=== PATIENT | male | born 1965 | race African-American/Black ===

== ENCOUNTER 2018-08-11 19:56 | Emergency (ER) | payer BC ==
[~2018-08-11] VITALS: Ht 188 cm; Wt 100.0 kg
--- NOTE | 2018-08-11 20:18 | PHYS DOC ---
Adult General Chief Complaint Chief Complaint leg pain [facility] HPI 53 years old male presented emergency department with right calf pain started this afternoon at work he denies any recent travel denies any injury no history of blood clots in the past no family history of blood clots Review of Systems Review of Systems Constitutional: Denies fever or chills [] Eyes: Denies change in visual acuity, redness, or eye pain [] HENT: Denies nasal congestion or sore throat [] Respiratory: Denies cough or shortness of breath [] Cardiovascular: No additional information not addressed in HPI [] GI: Denies abdominal pain, nausea, vomiting, bloody stools or diarrhea [] : Denies dysuria or hematuria [] Musculoskeletal: Denies back pain or joint pain [] Integument: Denies rash or skin lesions [] Neurologic: Denies headache, focal weakness or sensory changes [] Endocrine: Denies polyuria or polydipsia [] All other systems were reviewed and found to be within normal limits, except as documented in this note. Allergies Allergies Allergies Coded Allergies Type Severity Reaction Last Updated Verified No Known Drug Allergies 08/11/18 No Physical Exam Physical Exam Constitutional: Well developed, well nourished, no acute distress, non-toxic appearance. [] HENT: Normocephalic, atraumatic, bilateral external ears normal, oropharynx moist, no oral exudates, nose normal. [] Eyes: PERRLA, EOMI, conjunctiva normal, no discharge. [] Neck: Normal range of motion, no tenderness, supple, no stridor. [] Cardiovascular:Heart rate regular rhythm, no murmur [] Lungs & Thorax: Bilateral breath sounds clear to auscultation [] Abdomen: Bowel sounds normal, soft, no tenderness, no masses, no pulsatile masses. [] Skin: Warm, dry, no erythema, no rash. [] Back: No tenderness, no CVA tenderness. [] Extremities: No tenderness, no cyanosis, no clubbing, ROM intact, no edema. [] Neurologic: Alert and oriented X 3, normal motor function, normal sensory function, no focal deficits noted. [] Psychologic: Affect normal, judgement normal, mood normal. [] Current Patient Data Vital Signs Vital Signs Date Time Temp Pulse Resp B/P (MAP) Pulse Ox O2 Delivery O2 Flow Rate FiO2 08/11/18 19:56 98.8 54 18 97 Room Air Lab Results Laboratory Tests Test 08/11/18 20:40 White Blood Count 7.5 x10^3/uL (4.0-11.0) Red Blood Count 5.09 x10^6/uL (4.30-5.70) Hemoglobin 15.8 g/dL (13.0-17.5) Hematocrit 46.2 % (39.0-53.0) Mean Corpuscular Volume 91 fL (79-100) Mean Corpuscular Hemoglobin 31 pg (25-35) Mean Corpuscular Hemoglobin Concent 34 g/dL (31-37) Red Cell Distribution Width 13.2 % (11.5-14.5) Platelet Count 185 x10^3/uL (140-400) Neutrophils (%) (Auto) 71 % (31-73) Lymphocytes (%) (Auto) 21 % (24-48) L Monocytes (%) (Auto) 8 % (0-9) Eosinophils (%) (Auto) 0 % (0-3) Basophils (%) (Auto) 0 % (0-3) Neutrophils # (Auto) 5.3 x10^3uL (1.8-7.7) Lymphocytes # (Auto) 1.6 x10^3/uL (1.0-4.8) Monocytes # (Auto) 0.6 x10^3/uL (0.0-1.1) Eosinophils # (Auto) 0.0 x10^3/uL (0.0-0.7) Basophils # (Auto) 0.0 x10^3/uL (0.0-0.2) Sodium Level 140 mmol/L (136-145) Potassium Level 3.7 mmol/L (3.5-5.1) Chloride Level 102 mmol/L (98-107) Carbon Dioxide Level 29 mmol/L (21-32) Anion Gap 9 (6-14) Blood Urea Nitrogen 15 mg/dL (8-26) Creatinine 1.3 mg/dL (0.7-1.3) Estimated GFR (Cockcroft-Gault) 70.4 Glucose Level 107 mg/dL (70-99) H Calcium Level 8.9 mg/dL (8.5-10.1) EKG EKG [] Radiology/Procedures Radiology/Procedures []Ultrasound of the right leg did not show any evidence of DVT however showed a cyst about 4 cm Course & Med Decision Making Course & Med Decision Making Pertinent Labs and Imaging studies reviewed. (See chart for details) [] Final Impression Final Impression Patient to follow-up with his primary care provider[] Problems: (1) Leg pain, right Dragon Disclaimer Dragon Disclaimer This electronic medical record was generated, in whole or in part, using a voice recognition dictation system. LA ROSA MD Aug 11, 2018 20:18
[2018-08-11 20:59] LABS: BASO % 0 % (0-3); EOS % 0 % (0-3); HEMATOCRIT 46.2 % (39.0-53.0); HEMOGLOBIN 15.8 g/dL (13.0-17.5); LYMPH # 1.6 x10^3/uL (1.0-4.8); LYMPH % 21 % (24-48); MEAN CORPUSCULAR HEMOGLOBIN 31 pg (25-35); MEAN CORPUSCULAR HGB CONC 34 g/dL (31-37); MEAN CORPUSCULAR VOLUME 91 fL (79-100); MONO # 0.6 x10^3/uL (0.0-1.1); MONO % 8 % (0-9); NEUT # 5.3 x10^3uL (1.8-7.7); NEUT % 71 % (31-73); PLATELET COUNT 185 x10^3/uL (140-400); RED BLOOD COUNT 5.09 x10^6/uL (4.30-5.70); RED CELL DISTRIBUTION WIDTH 13.2 % (11.5-14.5); WHITE BLOOD COUNT 7.5 x10^3/uL (4.0-11.0)
[2018-08-11 21:14] LABS: CALCIUM 8.9 mg/dL (8.5-10.1); CREATININE 1.3 mg/dL (0.7-1.3); GFR 70.4; POTASSIUM 3.7 mmol/L (3.5-5.1)
[2018-08-11 22:47] VITALS: BP 139/90
--- NOTE | 2018-08-11 23:42 | RAD ---
Examination: VENOUS LOWER EXTREMITY RIGHT History: RT MID CALF PAIN, NO KNOWN INJURY, PT JUST FELT SHARP PAIN IN CALF WHEN WALKING, PAIN WON'T GO AWAY Comparison/Correlation: None Findings: Right lower extremity venous duplex ultrasound examination was performed. Color Doppler, spectral Doppler, and grayscale imaging was performed.. Compression and augmentation utilized. Right common femoral vein, superficial femoral vein, popliteal vein, posterior tibial veins, peroneal veins, and greater saphenous vein are normal with no thrombus. Normal phasicity and flow. There is note made of a right mid calf heterogeneously hyperechoic collection measuring 4.8 cm x 3.18 x 2.5 cm. There is no vascularity identified within this right mid calf collection. This appears to be within musculature. Impression: No right lower extremity DVT. Right calf heterogeneously hypoechoic collection which may represent hematoma. Follow-up to assess resolution should be considered to exclude a more significant process. Electronically signed by: Irwin Briscoe MD (08/11/2018 11:38 PM) [facility]
== END 2018-08-11 22:45 | disposition home or self-care (01) ==
LOC: ER 19:56
DX: M79.661 Pain in right lower leg (principal)
CPT/HCPCS: 36415; 80048; 85025; 93971; 99284

== ENCOUNTER → 2018-10-13 | Outpatient (CLI) | payer BC ==
--- NOTE | 2018-10-13 17:37 | RAD ---
MR#: [id number] Date of Study: 10/13/2018 Ordering Physician: ELSY LONDON, Referring Physician: ELSY LONDON Tech: Mercedes Whittington RDMS RVT APPROVED REPORT Patient Location : OUT-PATIENT Indications Varicose Veins VENOUS INSUFFICIENCY Grayscale images the bilateral saphenofemoral junctions do not reveal any obvious evidence of thrombu s. The bilateral lesser saphenous veins do not show any evidence of reflux. The right great saphenous vein measures approximately 6 mm in maximum dimension and has a maximum ref lux time of 3.4 seconds. The left great saphenous vein has a maximum dimension of approximately 4.5 m m with a maximum reflux time of 3 seconds. Critical Notification Critical Value: No <Conclusion> Positive for reflux in the bilateral greater saphenous veins. Signed by : Skyler Dao, Electronically Approved : 10/13/2018 17:36:58
== END | disposition home or self-care (01) ==
LOC: US 13:40
PROVIDERS: ATTEND Internal Medicine Cardiovascular Disease
DX: I87.2 Venous insufficiency (chronic) (peripheral) (principal)
CPT/HCPCS: 93970

== ENCOUNTER → 2018-12-01 | Outpatient (CLI) | payer BC ==
--- NOTE | 2018-12-01 13:43 | RAD ---
CHEST PA LATERAL History: Beginning new medication, cough Comparison: August 25, 2007 Findings: 2 views of the chest are submitted. There is no lobar infiltrate, pleural fluid, pneumothorax. There is small focus of slightly nodular opacity in the right suprahilar region not clearly seen previously Heart size is within normal limits. There is some atherosclerotic calcification near the aortic arch. Impression: 1. There is a small focus of slightly nodular appearing opacity in the right suprahilar region, possibly related to overlapping bone or vascular structures. However small nodule is not excluded better evaluated by CT. Electronically signed by: Ky Schneider MD (12/01/2018 1:40 PM) [place] [id number]
== END | disposition home or self-care (01) ==
LOC: RAD 11:42
PROVIDERS: ATTEND General Practice
DX: R05 Cough (principal); L40.9 Psoriasis, unspecified
CPT/HCPCS: 71046

== ENCOUNTER → 2018-12-10 | Outpatient (CLI) | payer BC ==
--- NOTE | 2018-12-10 11:50 | RAD ---
MR#: [id number] Date of Study: 12/10/2018 Ordering Physician: ELSY LONDON, Referring Physician: ELSY LONDON, Tech: Maggie Monson RDMS, RVT, RTR APPROVED REPORT Lower Extremity Venous Study for DVT Patient Location: OUT-PATIENT Indications The bilateral lower extremity deep veins were evaluated for thrombus with color Doppler, spectral and grayscale images. On the right the grayscale images of the common femoral, superficial femoral and popliteal veins do n ot demonstrate any evidence of thrombus and these veins appear to be compressible. The below-knee vei ns were not well visualized but grossly appear to be compressible. Spectral imaging and color Doppler do not reveal any evidence of obstruction to flow with normal respirophasic variation above the knee . Below the knee there is spontaneous flow noted. On the left, the grayscale images of the common femoral, superficial femoral and popliteal veins do n ot demonstrate any evidence of thrombus and these veins appear to be compressible. The below-knee vei ns again were not well visualized but grossly appear to be compressible. Spectral imaging and color D oppler do not reveal any evidence of obstruction to flow with normal respirophasic variation above th e knee. The below-knee veins demonstrate spontaneous flow. Bilateral successful great saphenous vein ablation. Critical Notification Critical Value: No <Conclusion> 1. Negative for DVT in the bilateral lower extremity veins 2. Successful bilateral greater saphenous vein ablation. Signed by : Skyler Dao, Electronically Approved : 12/10/2018 11:49:39
== END | disposition home or self-care (01) ==
LOC: US 10:10
PROVIDERS: ATTEND Internal Medicine Cardiovascular Disease
DX: I87.2 Venous insufficiency (chronic) (peripheral) (principal)
CPT/HCPCS: 93970

== ENCOUNTER → 2018-12-15 | Outpatient (CLI) | payer BC ==
[~2018-12-15] MED LIST: IOHEXOL 300 MG/ML 75 ML VIAL. IV ONE
--- NOTE | 2018-12-15 13:56 | RAD ---
CT of the chest with IV contrast compared to PA and lateral dated 12/01/2018 for abnormal chest x-ray, no shortness of air, no chest pain. TECHNIQUE AND FINDINGS: Contiguous helical 3 mm axial images are obtained from the thoracic inlet to the base of diaphragm following ministration of IV contrast. Sagittal and coronal reformations are evaluated. The visualized upper abdominal organs are grossly unremarkable. Heart size within normal limits. No suspicious mediastinal, hilar, or axillary lymphadenopathy. Central airways are patent. Small subcentimeter right thyroid nodule is noted. No suspicious osseous abnormalities. The abnormality described in the supraclavicular region on the right is not seen. Within the right middle lobe on axial image #56 there is a small 3 mm pulmonary nodule near the periphery. A second pleural-based nodule is seen in the right middle lobe on axial image #69, also measuring 3 to 4 mm. No other lung nodules or masses are identified. No focal lung parenchymal abnormalities. IMPRESSION: 1. No abnormality corresponding to the finding seen on the patient's chest radiograph. 2. 2 tiny 3 mm pulmonary nodules on the right, almost certainly benign. No suspicious lung nodules or masses. Electronically signed by: Real Rodriguez MD (12/15/2018 1:53 PM) [id number]
== END | disposition home or self-care (01) ==
LOC: CT 07:48
PROVIDERS: ATTEND General Practice
DX: R91.8 Other nonspecific abnormal finding of lung field (principal)
CPT/HCPCS: 71260; Q9967

== ENCOUNTER → 2020-08-10 | Outpatient (CLI) | payer BC ==
[2020-08-10 11:16] LABS: BASO % 0 % (0-3); EOS % 0 % (0-3); HEMATOCRIT 50.4 % (39.0-53.0); HEMOGLOBIN 16.7 g/dL (13.0-17.5); LYMPH # 1.6 x10^3/uL (1.0-4.8); LYMPH % 25 % (24-48); MEAN CORPUSCULAR HEMOGLOBIN 31 pg (25-35); MEAN CORPUSCULAR HGB CONC 33 g/dL (31-37); MEAN CORPUSCULAR VOLUME 93 fL (79-100); MONO # 0.5 x10^3/uL (0.0-1.1); MONO % 8 % (0-9); NEUT # 4.2 x10^3uL (1.8-7.7); NEUT % 66 % (31-73); PLATELET COUNT 203 x10^3/uL (140-400); RED CELL DISTRIBUTION WIDTH 12.7 % (11.5-14.5); WHITE BLOOD COUNT 6.3 x10^3/uL (4.0-11.0)
[2020-08-10 11:28] LABS: ALBUMIN 3.8 g/dL (3.4-5.0); DIRECT BILIRUBIN 0.2 mg/dL (0.0-0.2); TOTAL BILIRUBIN 0.9 mg/dL (0.2-1.0); TOTAL PROTEIN 7.8 g/dL (6.4-8.2)
== END ==
LOC: LAB 10:13
PROVIDERS: ATTEND Physician Assistant
DX: L40.9 Psoriasis, unspecified (principal)
CPT/HCPCS: 80076; 85025; 86481

== ENCOUNTER → 2021-02-13 | Outpatient (CLI) | payer BC ==
[2021-02-13 10:44] LABS: BASO % 0 % (0-3); EOS % 1 % (0-3); HEMATOCRIT 47.6 % (39.0-53.0); HEMOGLOBIN 16.4 g/dL (13.0-17.5); LYMPH # 1.7 x10^3/uL (1.0-4.8); LYMPH % 27 % (24-48); MEAN CORPUSCULAR HEMOGLOBIN 32 pg (25-35); MEAN CORPUSCULAR HGB CONC 34 g/dL (31-37); MEAN CORPUSCULAR VOLUME 93 fL (79-100); MONO # 0.6 x10^3/uL (0.0-1.1); MONO % 9 % (0-9); NEUT # 4.1 x10^3uL (1.8-7.7); NEUT % 64 % (31-73); PLATELET COUNT 197 x10^3/uL (140-400); WHITE BLOOD COUNT 6.4 x10^3/uL (4.0-11.0)
[2021-02-13 10:47] LABS: ALBUMIN 3.7 g/dL (3.4-5.0); DIRECT BILIRUBIN 0.1 mg/dL (0.0-0.2); TOTAL BILIRUBIN 0.5 mg/dL (0.2-1.0); TOTAL PROTEIN 7.7 g/dL (6.4-8.2)
== END ==
LOC: LAB 09:26
PROVIDERS: ATTEND Physician Assistant
DX: Z79.899 Other long term (current) drug therapy (principal)
CPT/HCPCS: 36415; 80076; 85025

== ENCOUNTER → 2021-09-04 | Outpatient (CLI) | payer BC ==
[2021-09-04 11:03] LABS: BASO % 0 % (0-3); EOS # 0.1 x10^3/uL (0.0-0.7); EOS % 1 % (0-3); HEMATOCRIT 49.3 % (39.0-53.0); HEMOGLOBIN 16.8 g/dL (13.0-17.5); LYMPH # 1.6 x10^3/uL (1.0-4.8); LYMPH % 21 % (24-48); MEAN CORPUSCULAR HEMOGLOBIN 32 pg (25-35); MEAN CORPUSCULAR HGB CONC 34 g/dL (31-37); MEAN CORPUSCULAR VOLUME 94 fL (79-100); MONO # 0.6 x10^3/uL (0.0-1.1); MONO % 8 % (0-9); NEUT # 5.4 x10^3uL (1.8-7.7); NEUT % 70 % (31-73); PLATELET COUNT 188 x10^3/uL (140-400); RED BLOOD COUNT 5.25 x10^6/uL (4.30-5.70); WHITE BLOOD COUNT 7.7 x10^3/uL (4.0-11.0)
[2021-09-04 11:11] LABS: ALBUMIN 3.8 g/dL (3.4-5.0); DIRECT BILIRUBIN 0.1 mg/dL (0.0-0.2); TOTAL BILIRUBIN 0.7 mg/dL (0.2-1.0); TOTAL PROTEIN 7.4 g/dL (6.4-8.2)
== END ==
LOC: LAB 09:58
PROVIDERS: ATTEND Physician Assistant
DX: Z79.899 Other long term (current) drug therapy (principal)
CPT/HCPCS: 80076; 85025; 86481